=== PATIENT | male | born 1990 | race Two or more races ===

== ENCOUNTER 2023-04-24 18:45 | Emergency (ER) | payer SELFPAY ==
[~2023-04-24] VITALS: Ht 172.7 cm; Wt 75.0 kg
[2023-04-24] MEDS ORDERED: IBUPROFEN 800 MG TAB PO ONE (19:30)
[2023-04-24] MEDS ORDERED: SODIUM CHLORIDE 0.9% 1,000 ML IV ONE (23:30)
[2023-04-25] MEDS ORDERED: AUG875T PO (01:08)
[2023-04-25] MEDS ORDERED: IBUP-1455 PO (01:10)
[2023-04-25] MEDS ORDERED: cefTRIAXone SOD 1,000 MG VL IM ONE (01:15)
[2023-04-25 01:54] VITALS: BP 119/64; PULSE 86; RESP 18; TEMP 98; O2SAT 98
== END 2023-04-25 01:54 | disposition home or self-care (01) ==
LOC: ER 18:45
DX: K04.7 Periapical abscess without sinus (principal); R53.1 Weakness; F17.210 Nicotine dependence, cigarettes, uncomplicated
CPT/HCPCS: 96360; 96372; 99283; J0696; J7030